=== PATIENT | male | born 1930 | race Caucasian/White ===

== ENCOUNTER 2017-03-24 18:31 | Inpatient (IN) | payer OTHER, MEDICAID ==
[~2017-03-24] VITALS: Ht 177.8 cm; Wt 64.0 kg
--- NOTE | 2017-03-24 18:31 | NUR ---
Patient was BIBA and taken to bed 04 via gurney per EMS.
[2017-03-24 18:40] VITALS: BP 149/70
--- NOTE | 2017-03-24 19:10 | NUR ---
C/O ABDOMINAL PAIN ON SCENE, STAFF AT [facility]ARDING FACILITY STATED TO EMS PT HAS NOT HAD A BM IN FEW DAYS. UPON ARRIVAL PT IS AGGITATED, GENERALIZED TREMORS GRASPING CHEST. WHEN ASKED IF HE HAS PAIN, PT POINTS TO CHEST. HX DEMENTIA, HTN, NON VERBAL,
[2017-03-24] MEDS ORDERED: diphenhydrAMINE 50 MG/ML VIAL IM ONE (19:55)
[2017-03-24] MEDS ORDERED: HALOPERIDOL IM 5 MG/ML VIAL IM ONE (19:55)
[2017-03-24] MEDS ORDERED: VANCOMYCIN 1,000 MG in DEXTROSE 5% 250 ML IV ONE (20:20)
[2017-03-24] MEDS ORDERED: NACL 0.9% 1,000 ML IV ONE ×2 (20:20→22:00)
[2017-03-24] MEDS ORDERED: PIPERACILLIN/TAZOBACTAM 3.375 GM in DEXTROSE 5% 50 ML IV ONE (20:20)
[2017-03-24] MEDS ORDERED: PIPERACILLIN/TAZOBACTAM 3.375 GM VIAL IV ONE (20:50)
[2017-03-24] MEDS ORDERED: VANCOMYCIN 1,000 MG VIAL ONE (21:40)
[2017-03-24] MEDS ORDERED: MORPHINE SULFATE 2 MG/ML SYR IVP PRN (21:50)
[2017-03-24] MEDS ORDERED: ACETAMINOPHEN 325 MG TAB PO PRN (21:50)
[2017-03-24] MEDS ORDERED: DOCUSATE SODIUM 100 MG GELCAP PO PRN (21:50)
[2017-03-24] MEDS ORDERED: ONDANSETRON 4 MG/2 ML VIAL IVP PRN (21:50)
[2017-03-24] MEDS: LACTOBACILLUS RHAMNOSUS GG 1 EACH CAP PO SCH (22:00)
[2017-03-24] MEDS: METOPROLOL 5 MG/5 ML VIAL IVP SCH (22:05)
[2017-03-24] MEDS ORDERED: ALBUTEROL HFA MDI 90 MCG/ACTUATION 8 GM INH PRN (22:05)
--- NOTE | 2017-03-24 22:59 | NUR ---
Patient will be admitted to care of DR CHERRY . Admited to TELE 122B. Will go to room 122B. Belongings list completed. Report to SANDRA CERVANTES .
--- NOTE | 2017-03-24 23:10 | NUR ---
ADMITTED AN 86 Y/O MALE FROM ER, VIA GURNEY ACCOMPANIED BY 3 STAFF. PT AAOX2, APHASIC BUT ABLE TO FOLLOW COMMANDS. PT ON TELE MONITOR. ADMITTING DX OF SEPSIS, METABOLIC ENCEPALOPATHY, UTI. PT IS RESTLESS AND ANXIOUS. ON ROOM AIR. MILD WEAKNESS TO BLE, AMBULATES WITH ASSIST.FALL PRECAUTION AND PLAN OF CARE INITIATED. IV ACCESS TO RT FOREARM, GAUGE 20. NO S/S OF INFILTRATION OBSERVED AT THIS TIME. PROVIDED ORIENTATION TO CALL LIGHT, BATHROOM, TV. YELLOW SOCKS AND BED ALARM IN PLACE. PT REFUSES TO WEAR GOWN, PER ER NURSE, PT KEPT TAKING IT OFF AND MAKES HIM AGITATED. YELLOW ARM BAND AND SIGNAGE. INSTRUCTED TO CALL STAFF FOR ASSISTANCE, PT UNABLE TO VERBALIZE UNDERSTANDING. WILL CONTINUE TO MONITOR.
[2017-03-25] VITALS: BP 148/70
--- NOTE | 2017-03-25 01:41 | NUR ---
PT OBSERVED CONSTANTLY GETTING OUT OF BED, CONSTANTLY REMOVING TELE MONITOR DESPITE CONSTANT REDIRECTION. PAGED DR. CHERRY AND LEFT MESSAGE TO EXCHANGE.AWAITING FOR CALL BACK.
--- NOTE | 2017-03-25 02:00 | NUR ---
PT SLEEPING AT THIS TIME BUT EASILY AROUSABLE. RESP EVEN AND UNLABORED. NO FACIAL GRIMACING OR MOANING INDICATING PAIN. WILL CONTINUE TO MONITOR.
--- NOTE | 2017-03-25 02:42 | NUR ---
PT AWAKE, URINATED ON THE FLOOR, CONFUSED, INTERMITTENTLY GETS OUT OF BED UNASSISTED. REDIRECTED BACK TO BED. SAFETY AND FALL PRECAUTION IN PLACE. PAGED DR. CHERRY, LEFT A MESSAGE TO GISELA. AWAITING FOR CALL BACK.
--- NOTE | 2017-03-25 02:51 | NUR ---
DR. LAZO CALLED BACK, DISCUSSED PATIENT'S BEHAVIOR OF CONSTANTLY REMOVING THE TELE MONITOR. MD ORDERED TO DC DOWN GRADE PT TO MEDSUR. ALSO, MD ORDERED AMBIEN 5MG AT BEDTIME.
[2017-03-25] MEDS: metroNIDAZOLE 500 MG/NS PREMIX 100 ML IV SCH ×3 (04:04→20:36)
--- NOTE | 2017-03-25 04:19 | NUR ---
PT AWAKE AT THIS TIME, RESTLESS AND ANXIOUS MANIFESTED BY CONSTANTLY GETTING OUT OF BED UNASSISTED. NO REGARD FOR HIS OWN SAFETY PLACING HIM AT RISK FOR FALL. FREQUENTLY REORIENTED AND REDIRECTED. PT KEPT CLEAN AND DRY AND COMFORTABLE. PAGED DR. LAZO, MESSAGE LEFT TO GISELA. AWAITING FOR CALL BACK.
--- NOTE | 2017-03-25 04:38 | NUR ---
DR. CHERRY CALLED BACK, MADE AWARE OF PATIENT'S BEHAVIOR WITH ORDER GIVEN ATIVAN 0.5MG IVP Q4H PRN FOR ANXIETY. NOTED AND CARRIED OUT.
[2017-03-25] MEDS ORDERED: PIPERACILLIN/TAZOBACTAM 3.375 GM in DEXTROSE 5% 50 ML IV SCH (05:00)
[2017-03-25] MEDS: LORazepam 2 MG/ML VIAL IVP PRN ×2 (05:09→14:32)
--- NOTE | 2017-03-25 05:09 | NUR ---
ATIVAN 0.5MG IVP ADMINISTERED DUE TO RESTLESSNESS AEB CONSTANTLY TRYING TO GET OUT OF BED WITH NO REGARD FOR SAFETY. WILL CONTINUE TO MONITOR AND REASSESS FOR EFFECTIVENESS.
[2017-03-25] MEDS ORDERED: PIPERACILLIN/TAZOBACTAM 3.375 GM VIAL IV ONE (05:15)
--- NOTE | 2017-03-25 06:32 | NUR ---
PT SOUND ASLEEP AT THIS TIME, EASILY AROUSABLE. NO S/S OF RESPIRATORY DISTRESS. WILL CONTINUE TO MONITOR.
[2017-03-25] MEDS ORDERED: ALBUTEROL 0.083% 2.5 MG/3 ML NEBU INH PRN (07:05)
--- NOTE | 2017-03-25 07:27 | NUR ---
PT SOUND ASLEEP AT THIS TIME. NO S/S OF RESP DISTRESS. NO FACIAL GRIMACING OR MOANING INDICATING PAIN. ALL NEEDS MET. ENDORSED TO NEXT SHIFT FOR CONTINUITY OF CARE. PT IN STABLE CONDITION.
--- NOTE | 2017-03-25 07:30 | NUR ---
RECEIVED PT REPORT AT BEDSIDE FROM NIGHT NURSE. PT IS SLEEPING NOTED IV ON THE R FA WITH IVF RUNNING. PT SHOWS NO S/S OF DISTRESS NOTED ON ROOM AIR. PT SKIN IS INTACT. PT HAS URINAL AT BEDSIDE. PT BED IS LOWERED WITH CALL LIGHT WITHIN REACH.
[2017-03-25 08:00] VITALS: BP 139/64
--- NOTE | 2017-03-25 08:00 | NUR ---
PT IS AOX1. PT IS ON ROOM AIR AND SHOWS NO S/S OF DISTRESS NOTED. PT HAS IVF RUNNING. PT BED IS LOWERED WITH CALL LIGHT WITHIN REACH. PT WAS TAUGHT HOW TO USE CALL LIGHT HOWEVER PT NEEDS REINFORCEMENT. PT DOES NOT COMPREHEND EDUCATION. BED ALARM IS ON. WILL CONTINUE TO MONITOR.
[2017-03-25] MEDS: METOPROLOL 5 MG/5 ML VIAL IVP SCH ×2 (09:00→20:35)
[2017-03-25] MEDS: LACTOBACILLUS RHAMNOSUS GG 1 EACH CAP PO SCH (09:56)
--- NOTE | 2017-03-25 10:15 | NUR ---
PT TATO AND STEP DAUGHTER DEVIKA WERE CALLED TO GET TELEPHONE CONSENT FOR CT W/ WO CONTRAST. JOSE CERVANTES WITNESSED AND VERIFIED CONSENT.
--- NOTE | 2017-03-25 10:25 | NUR ---
PATIENT HAS BEEN SCREENED AND CATEGORIZED HIGH NUTRITION RISK. PATIENT WILL BE SEEN WITHIN 1-2 DAYS OF ADMISSION. 03/25/17-03/26/[address]
--- NOTE | 2017-03-25 10:30 | NUR ---
PT IS WAS FOUND OOB AND URINATED ON THE FLOOR. PT WAS ASSISTED TO BED WITH STEADY GAIT. PT IS BACK IN BED. LINENS AND GOWN WERE CHANGED. PT BED IS LOWERED, FLAT WITH CALL LIGHT WITHIN REACH. BED ALARM IS ON.
--- NOTE | 2017-03-25 11:15 | NUR ---
PT FOUND TRYING TO GET OOB. PT STATES HE WANT TO GET US AND USE BATHROOM. PT WAS GIVEN URINAL. PT URINATED IN BED. CHANGED LINENS AND GOWN.
--- NOTE | 2017-03-25 13:50 | NUR ---
PT WAS FOUND OOB WALKING TO THE BATHROOM. PT URINATED ON THE FLOOR. PT WAS WALKED WITH ASSIST TO THE TOILET. PT THEN WITH ASSIST AMB TO BED WITH STEADY GAIT. PT WAS LAID IN BED. PT LINENS AND GOWN WERE CHANGED. JOSE CERVANTES HELPED AND WITNESSED. EVS WAS CALLED TO CLEAN ROOM. IV IS STILL INTACT AND PATENT. PT SHOWS NO S/S OF DISTRESS ON ROOM AIR. BED IS LOWERED, FLAT WITH CALL LIGHT WITHIN REACH. PT NEEDS REINFORCEMENT. PT DOES NOT COMPREHEND EDUCATION. PT BED ALARM IS ON.
--- NOTE | 2017-03-25 14:15 | NUR ---
03/25/17 RD INITIAL ASSESSMENT COMPLETED PLEASE REFER TO NUTRITION ASSESSMENT UNDER CARE ACTIVITY FOR ESTIMATED NUTRITIONAL NEEDS. 1. CONTINUE REGULAR, MECHANICAL SOFT DIET 2. RD TO FOLLOW-UP 2-3 DAYS; HIGH RISK NATALIA STOLL RD
[2017-03-25] MEDS: PIPER/TAZO 3.375GM/D5W PREMIX 50 ML IV SCH ×2 (14:22→20:26)
--- NOTE | 2017-03-25 14:32 | NUR ---
ADMINISTERED ATIVAN 0.5 MG. PT IS RESTLESS AND ANXIOUS.
--- NOTE | 2017-03-25 15:00 | NUR ---
PT IS IN BED SLEEPING AND SHOWS NO S/S OF DISTRESS ON ROOM AIR.
[2017-03-25 16:00] VITALS: BP 126/58
--- NOTE | 2017-03-25 16:00 | NUR ---
IS IN BED SLEEPING AND SHOWS NO S/S OF DISTRESS. PT BED ALARM IS ON.
--- NOTE | 2017-03-25 17:15 | NUR ---
PT WAS FOUND TRYING TO GET OOB PT URINATED IN BED. PT WAS GIVEN PERINEAL CARE. LINENS AND GOWN WERE CHANGED. PT IS NOW IN BED AND SHOWS NO S/S OF DISTRESS ON ROOM AIR. PT WAS TAUGHT HOW TO USE CALL LIGHT. PT NEEDS REINFORCEMENT BC PT DOES NOT COMPREHEND EDUCATION. PT BED ALARM IS ON.
--- NOTE | 2017-03-25 17:55 | NUR ---
PT LEFT IN STABLE CONDITION TO CT SCAN.
--- NOTE | 2017-03-25 18:20 | NUR ---
PT BACK ON UNIT. PT IS AOX1 PT SHOWS NO S/S OF DISTRESS NOTED AT THIS TIME.
--- NOTE | 2017-03-25 18:35 | NUR ---
PT WAS FOUND OOB URINATED AT THE BEDSIDE. PT GOWNS AND LINENS WERE CHANGED. PT IS CONFUSED AND UNAWARE OF WERE HE IS AT. PT ONLY STATES HIS NAME. PT IS BACK IN BED AND SHOWS NO S/S OF DISTRESS ON ROOM AIR. PT BED IS LOWERED WITH CALL LIGHT WITHIN REACH. PT WAS REEDUCATED ABOUT BED ALARM. PT NEEDS REENFORCEMENT ON USING CALL LIGHT HOWEVER PT DOES NOT COMPREHEND EDUCATION. BED ALARM IS ON. WILL CONTINUE TO MONITOR.
--- NOTE | 2017-03-25 18:37 | NUR ---
ADMINISTERED SCHEDULED MEDICATION LATE. I WAS UNABLE TO ADMINISTER MEDICATION ON TIME. PT IS IN BED AND SHOWS NO S/S OF DISTRESS AT THIS TIME.
--- NOTE | 2017-03-25 19:20 | NUR ---
GAVE PT REPORT TO NIGHT NURSE. PT ENDORSED IN STABLE CONDITION.
--- NOTE | 2017-03-25 19:23 | NUR ---
RECEIVED FROM AM RN IN BED SLEEPING. NO RESTLESSNESS NOTED. PT. PER AM RN CONFUSED. NO SOB. DX. METABOLIC ENCEPHALOPATHY. BED ALARM ON. NEEDS WILL BE ANTICIPATED AND WILL BE MET. TOTAL CARE.
[2017-03-25] MEDS: ZOLPIDEM 5 MG TAB PO SCH (20:27)
[2017-03-25 20:31] VITALS: BP 115/58
--- NOTE | 2017-03-25 20:36 | NUR ---
FLAGYL 500 MG. WILL NOT BE ADMINISTERED RT PT. JUST GOT HIS FLAGYL IVP DOSE AT 1830. PT. BEEN SO RESTLESS FOR THE AM SHIFT. RN UNABLE TO GIVE ON TIME. PT. KEPT PULLING HIS IV TUBING.
[2017-03-25] MEDS ORDERED: NITROGLYCERIN 0.4 MG TAB SL PRN (20:55)
[2017-03-25] MEDS: ATORVASTATIN 20 MG TAB PO SCH (21:29)
[2017-03-25] MEDS: OXYBUTYNIN 5 MG TAB PO SCH (21:29)
[2017-03-25] MEDS: VALSARTAN 80 MG TAB PO SCH (21:29)
[2017-03-25] MEDS: QUEtiapine FUMARATE 25 MG TAB PO SCH (21:30)
[2017-03-25] MEDS ORDERED: QUEtiapine FUMARATE 25 MG TAB ONE (21:33)
--- NOTE | 2017-03-25 22:49 | NUR ---
NEW IVF LINE INSERTED FOR PT. RT PT. PULLED OUT PREVIOUS IVF TUBING. NEW IVF INSERTED TO RAC#24 . GOOD BLOOD RETURN . TOLERATED WELL. US ABDOMEN DONE AND EKG DONE. PT. KEPT WARM AND COMFORTABLE. TRYING TO GO BACK TO SLEEP. NEEDS ANTICIPATED. PT. ENCOURAGED TO USE URINAL.
--- NOTE | 2017-03-25 23:44 | NUR ---
PT. WOKE UP AND STOOD UP FROM BED . CONFUSED. URINATED ON THE FLOOR. RE-ORIENTED TO ENVIRONMENT AND CARE GIVERS. ENCOURAGED TO GO BACK IN BED. BEDDINGS AND GOWN CHANGED. KEPT DRY AND WARM. BED ALARM ON.
--- NOTE | 2017-03-26 00:13 | NUR ---
PT. SLEPT BACK. WILL MONITOR MORE CLOSELY. BED ALARM ON. PT. CONFUSED. NEW IVF LINE INSERTED TO RAC #24.
--- NOTE | 2017-03-26 02:00 | NUR ---
AWAKE AND STOOD UP TO URINATE IN BRP. ENCOURAGED TO URINATE IN URINAL RT WEAK AND NOT STEADY WITH AMBULATION. ABLE TO URINATE 200 ML IN URINAL. CHANGED GOWN AND BEDDING RT WET WITH URINE. DX. OF UTI. AFEBRILE.
--- NOTE | 2017-03-26 04:28 | NUR ---
SLEEPING AT THIS TIME.
[2017-03-26] MEDS: LORazepam 2 MG/ML VIAL IVP PRN ×3 (04:58→16:59)
--- NOTE | 2017-03-26 05:00 | NUR ---
PT. RESTLESS AND WANTING TO WALK AROUND . PT. CONFUSED AND WEAK IN AMBULATING. FALL RISK. CHARGE NURSE MEDICATED PT. WITH ATIVAN IVP. NEW IVF SITE PATENT AND INTACT. COVERED WITH KERLIX RT PT. TENDENCY OF PULLING IVF TUBING.
[2017-03-26] MEDS: PIPER/TAZO 3.375GM/D5W PREMIX 50 ML IV SCH (05:31)
[2017-03-26] MEDS: metroNIDAZOLE 500 MG/NS PREMIX 100 ML IV SCH (05:31)
--- NOTE | 2017-03-26 06:04 | NUR ---
PT. POST ATIVAN IVP VITAL SIGNS WNL. 130/66 HR 66 AND 02 SAT AT 96 %. OPENS EYES WHEN AWAKENED.
--- NOTE | 2017-03-26 07:37 | NUR ---
ENDORSED TO THE NEXT RN FOR CONTINUITY OF CARE. SLEEPING AT THIS TIME. WAKES UP WHEN TOUCHED. OPENED EYSE WHEN WE TRIED TO WAKE HIM UP FOR MENTATION LEVEL CHECK. BP AT THIS TIME 140/69. PULSE 60 AND 02 SAT AT 98% ROOM AIR.
--- NOTE | 2017-03-26 07:38 | NUR ---
PT AWAKE AND RESPONSIVE, WITH PERIODS OF CONFUSION. BREATHING EVENLY AND UNLABORED, NO SIGNS OF ACUTE DISTRESS. SKIN IS WARM AND DRY. OFFLOAD TO PRESSURE AREAS. NO SIGNS OF ANY BOWEL/BLADDER DISCOMFORT. NO SIGNS OF ANY PAIN OR DISCOMFORT AT THIS TIME, ALL NEEDS ATTENDED, SAFETY PRECAUTIONS MAINTAINED. CALL LIGHT WITHIN REACH.
[2017-03-26 08:00] VITALS: BP 126/64
[2017-03-26] MEDS: QUEtiapine FUMARATE 25 MG TAB PO SCH ×3 (08:41→16:46)
[2017-03-26] MEDS: OXYBUTYNIN 5 MG TAB PO SCH ×2 (08:41→21:06)
[2017-03-26] MEDS: amLODIPine 5 MG TAB PO SCH (08:41)
[2017-03-26] MEDS: MEMANTINE 10 MG TAB PO SCH (08:41)
[2017-03-26] MEDS: LACTOBACILLUS RHAMNOSUS GG 1 EACH CAP PO SCH (08:41)
[2017-03-26] MEDS: VALSARTAN 80 MG TAB PO SCH ×2 (08:41→21:06)
[2017-03-26] MEDS: ASPIRIN 81 MG TAB.CHEW PO SCH (08:41)
[2017-03-26] MEDS: METOPROLOL 5 MG/5 ML VIAL IVP SCH ×2 (08:52→21:13)
--- NOTE | 2017-03-26 10:49 | NUR ---
NEW ORDERS RECEIVED FROM DR YUSUF. NOTED AND CARRIED OUT.
--- NOTE | 2017-03-26 13:36 | NUR ---
PT NOTES CHART REVIEWED AND NOT CLEARED FOR PT BY RN D/T BEING RESTLESS AT THIS TIME, RN ASKED IF POSSIBLE TO RETURN TOMORROW TO ATTEMPT THERAPY. WILL FOLLOW UP PATIENT TOMORROW. ASSISTED RN TO POSITION PATIENT TOWARDS HOB. PVEx1 Addendum: 03/26/17 at 1520 by Marleen Jane PT PHYSICAL THERAPY CO-SIGN The Physical Therapy Progress Notes documented by Lawn Mower have been reviewed. WILL FOLLOW UP W/Pt TOMORROW TO CONT W/POC Reviewed/Co-Signed by: Marleen Jane PT Documentation Done by: EMANI INGRAM PTA
[2017-03-26 16:00] VITALS: BP 129/51
--- NOTE | 2017-03-26 18:21 | NUR ---
PT AWAKE AND RESPONSIVE, RESTING WELL IN BED. WILL ENDORSE TO ONCOMING TOOL POLISHER NURSE FOR CONTINUITY OF CARE.
--- NOTE | 2017-03-26 19:30 | NUR ---
RECEIVED REPORT FROM NASH RN. PATIENT IS AWAKE, MUMBLES INCOHERENTLY, AND RESTING IN BED. PATIENT HAS HX OF DEMENTIA. REINFORCEMENT IS NEEDED. VITAL SIGNS ARE STABLE WITH NO SIGNS OF RESPIRATORY DISTRESS NOTED. NO REPORTS OF PAIN OR DISCOMFORT. THERE IS A #22 IN THE LEFT FOREARM TKO. EXPLAINED PLAN OF CARE TO INCLUDE VITAL SIGNS, MONITORING, AND MEDICATION ADMINISTRATION. UNABLE TO ASSESS IF PATIENT COMPREHENDED PATIENT TEACHING. REINFORCEMENT IS NEEDED. SAFETY MEASURES ENFORCED, WITH CALL LIGHT WITHIN PATIENT'S REACH. WILL CONTINUE TO MONITOR PATIENT.
[2017-03-26] MEDS: ZOLPIDEM 5 MG TAB PO SCH (21:05)
[2017-03-26] MEDS: ATORVASTATIN 20 MG TAB PO SCH (21:06)
--- NOTE | 2017-03-26 21:15 | NUR ---
TOLERATED DUE MEDICATIONS WITH NO SIGNS OF SOB OR DISCOMFORT NOTED. SAFETY MEASURES ENFORCED WITH CALL LIGHT WITHIN REACH. CONTINUE TO MONITOR PATIENT.
--- NOTE | 2017-03-26 22:15 | NUR ---
PATIENT RESTING COMFORTABLY IN BED WITH NO SIGNS OF RESPIRATORY DISTRESS OR SOB NOTED. SAFETY MEASURES ENFORCED, WITH CALL LIGHT WITHIN REACH. WILL CONTINUE TO MONITOR PATIENT.
[2017-03-27] VITALS: BP 144/74
--- NOTE | 2017-03-27 | NUR ---
PATIENT IS RESTING COMFORTABLY IN BED WITH NO S/S OF RESPIRATORY DISTRESS OR DISCOMFORT NOTED. VITALS ARE WNL. SAFETY MEASURES ENFORCED, WITH CALL LIGHT WITHIN REACH. WILL CONTINUE TO MONITOR PATIENT.
--- NOTE | 2017-03-27 02:00 | NUR ---
PATIENT RESTING COMFORTABLY IN BED WITH NO SIGNS OF ACUTE DISTRESS OR SOB NOTED. SAFETY MEASURES ENFORCED, WITH CALL LIGHT WITHIN REACH. CONTINUE TO MONITOR PATIENT.
[2017-03-27] MEDS: LORazepam 2 MG/ML VIAL IVP PRN (02:35)
--- NOTE | 2017-03-27 02:35 | NUR ---
PATIENT AGITATED AND ATTEMPTING TO GET OUT OF BED. ADMINISTERED ATIVAN 0.5MG IVP PER DOCTOR'S ORDERS. CONTINUE TO MONITOR.
--- NOTE | 2017-03-27 02:45 | NUR ---
PATIENT VOIDED MODERATE AMOUNT OF CLEAR YELLOW URINE ON PERIPAD. PERINEAL CARE PROVIDED. REPOSITIONED PATIENT FOR COMFORT. NO SIGNS OF RESPIRATORY DISTRESS NOTED. SAFETY MEASURES ENFORCED, WITH CALL LIGHT WITHIN REACH. CONTINUE TO MONITOR PATIENT.
--- NOTE | 2017-03-27 04:15 | NUR ---
ROUNDED ON PATIENT. PATIENT IN STABLE CONDITION RESTING IN BED. BREATHING IS EVEN AND UNLABORED. SAFETY MEASURES ENFORCED, WITH CALL LIGHT WITHIN REACH. WILL CONTINUE TO MONITOR PATIENT.
--- NOTE | 2017-03-27 07:10 | NUR ---
RECEIVED PATIENT REPORT AT BEDSIDE. PATIENT ASLEEP BUT AROUSABLE. NO S/S OF DISTRESS NOTED. PATIENT ON ROOM AIR. IV LINE NOTED TO THE LEFT FOREARM WITH IVF RUNNING TKO. FALL PRECAUTIONS IN PLACE. BED LOWERED WITH CALL LIGHT WITHIN REACH. WILL CONTINUE TO MONITOR
--- NOTE | 2017-03-27 07:19 | NUR ---
PATIENT IN STABLE CONDITION. ENDORSED CONTINUITY OF CARE TO MIKE CERVANTES.
[2017-03-27 07:36] VITALS: BP 149/72
[2017-03-27] MEDS: amLODIPine 5 MG TAB PO SCH (09:43)
[2017-03-27] MEDS: OXYBUTYNIN 5 MG TAB PO SCH ×2 (09:43→21:14)
[2017-03-27] MEDS: VALSARTAN 80 MG TAB PO SCH ×2 (09:43→21:00)
[2017-03-27] MEDS: QUEtiapine FUMARATE 25 MG TAB PO SCH ×3 (09:43→17:17)
[2017-03-27] MEDS: MEMANTINE 10 MG TAB PO SCH (09:43)
[2017-03-27] MEDS: ASPIRIN 81 MG TAB.CHEW PO SCH (09:43)
[2017-03-27] MEDS: LACTOBACILLUS RHAMNOSUS GG 1 EACH CAP PO SCH (09:43)
[2017-03-27] MEDS: METOPROLOL 5 MG/5 ML VIAL IVP SCH ×2 (09:51→21:00)
--- NOTE | 2017-03-27 13:20 | NUR ---
NURSE ASSISTED PT WITH LUNCH. PT SAT UP IN BED AND TOLERATED LUNCH WELL.
--- NOTE | 2017-03-27 13:20 | NUR ---
PATIENT SEEN BY PHYSICAL THERAPIST. PATIENT ABLE TO AMBULATE WITH WALKER
--- NOTE | 2017-03-27 14:40 | NUR ---
FAXED INQUIRY FOR SNF TO [facility] [place] [phone] PHONE [phone]
[2017-03-27 16:00] VITALS: BP 128/64
--- NOTE | 2017-03-27 16:11 | NUR ---
PHYSICAL THERAPY CO-SIGN The Physical Therapy Progress Notes documented by Collection Teller have been reviewed. Reviewed/Co-Signed by: Karla Kendall PT Documentation Done by:EMANI INGRAM PTA PROGRESS FILIPE. Addendum: 03/27/17 at 1612 by Karla Kendall PT Amended: Links added.
--- NOTE | 2017-03-27 18:00 | NUR ---
HELPED PT EAT DINNER. PT TOLERATED WELL. WILL CONTINUE TO MONITOR.
--- NOTE | 2017-03-27 19:00 | NUR ---
RECEIVED PT FROM DAYSHIFT NURSE, PT ALERT IN PERSON IV ON LEFT ARM INFUSING WELL , REPOSITIONED INITIAL ASSESSMENT DONE
--- NOTE | 2017-03-27 19:08 | NUR ---
ENDORSED CARE OF PT TO MACHINE I TRIMMER NURSE AT BEDSIDE. PT IN STABLE CONDITION.
[2017-03-27 20:00] VITALS: BP 93/50
[2017-03-27] MEDS: ZOLPIDEM 5 MG TAB PO SCH (21:14)
[2017-03-27] MEDS: ATORVASTATIN 20 MG TAB PO SCH (21:15)
--- NOTE | 2017-03-27 22:00 | NUR ---
PT REPOSITIONED Q2H LINEN CHANGED PT INCONTINENT NOT DISTRESS NOTED AT THIS TIME
--- NOTE | 2017-03-28 | NUR ---
PT SLEEPING, REPOSLITIONED Q2H LINEN CHANGED
--- NOTE | 2017-03-28 04:00 | NUR ---
SPONGE BATH GIVEN LINEN CHANGED PT INCONTINENT NOT DISTRESS NOTED
--- NOTE | 2017-03-28 06:42 | NUR ---
PT SLEEPING, HE WILL BE ENDORSED TO DAY SHIFT NURSE FOR CONTINUITY OF CARE
--- NOTE | 2017-03-28 07:29 | NUR ---
RECEIVED PT IN BED. ASLEEP. AROUSABLE TO VOICE. ALERT ORIENTED X1. NO SOB NOTED. DENIES ANY PAIN OR DISCOMFORT AT THIS TIME. NO SIGNS AND SYMPTOMS OF ACUTE PAIN OR DISTRESS NOTED. PT AMBULATORY WITH ASSIST. SAFETY PRECAUTION IN PLACE. CALL LIGHT WITHIN REACH.
--- NOTE | 2017-03-28 07:36 | NUR ---
PT ENDORSED TO NEXT SHIFT FOR CONTINUITY OF CARE ON STABLE CONDITION Addendum: 03/28/17 at 2020 by Donna Graves RN DISREGARD ABOVE DOCUMENTATION. WRONG TIME.
[2017-03-28 08:00] VITALS: BP 112/59
[2017-03-28] MEDS: VALSARTAN 80 MG TAB PO SCH ×2 (09:00→21:38)
[2017-03-28] MEDS: METOPROLOL 5 MG/5 ML VIAL IVP SCH ×2 (09:00→21:37)
[2017-03-28] MEDS: amLODIPine 5 MG TAB PO SCH (09:00)
--- NOTE | 2017-03-28 10:00 | NUR ---
ASSISTED PT EATING HIS BREAKFAST. TOLERATED WELL.
[2017-03-28] MEDS: MEMANTINE 10 MG TAB PO SCH (10:02)
[2017-03-28] MEDS: LACTOBACILLUS RHAMNOSUS GG 1 EACH CAP PO SCH (10:02)
[2017-03-28] MEDS: ASPIRIN 81 MG TAB.CHEW PO SCH (10:02)
[2017-03-28] MEDS: QUEtiapine FUMARATE 25 MG TAB PO SCH ×3 (10:03→17:12)
[2017-03-28] MEDS: OXYBUTYNIN 5 MG TAB PO SCH ×2 (10:03→21:38)
--- NOTE | 2017-03-28 11:15 | NUR ---
03/28/17 RD FOLLOW UP COMPLETED. PLEASE REFER TO NUTRITION PROGRESS NOTE UNDER CARE ACTIVITY FOR ESTIMATED NUTRITION NEEDS. RD RECOMMENDATIONS: 1- RECOMMEND CONTINUE CURRENT DIET, MECHANICAL SOFT - SUFFICIENT TO MEET >75% OF DAILY ESTIMATED NUTRITIONAL NEEDS WITH ACCEPTABLE TOLERANCE. 2- F/U DUE IN 3-5 DAYS; MODERATE RISK. ARNOL TORRES MBA, RD
[2017-03-28 13:01] VITALS: BP 115/67
[2017-03-28 16:00] VITALS: BP 114/64
--- NOTE | 2017-03-28 19:30 | NUR ---
REPORT GIVEN TO NEXT SHIFT FOR CONTINUITY OF CARE. PT ON STABLE CONDITION.
--- NOTE | 2017-03-28 20:00 | NUR ---
RECEIVED AWAKE,ALERT,CONFUSED. TRIES TO GET OUT OF BED WITHOUT HELP. BED ALARM ON. AFEBRILE, NOT IN ACUTE DISTRESS. NO PAIN OR DISCOMFORT NOTED. WITH SALINE LOCK TO THE LEFT FOREARM INTACT. VS STABLE, WILL CONTINUE TO MONITOR. NEEDS ATTENDED.
[2017-03-28] MEDS: ZOLPIDEM 5 MG TAB PO SCH (21:00)
[2017-03-28 21:30] VITALS: BP 111/65
[2017-03-28] MEDS: ATORVASTATIN 20 MG TAB PO SCH (21:38)
[2017-03-28] MEDS: LORazepam 2 MG/ML VIAL IVP PRN (21:39)
--- NOTE | 2017-03-28 21:39 | NUR ---
AMBIEN NOT GIVEN DUE TO RESTLESSNESS AND CONFUSION. ATIVAN 0.5 MG IVP GIVEN INSTEAD. OTHER DUE MEDS ALSO GIVEN.
--- NOTE | 2017-03-28 22:30 | NUR ---
PT.ASLEEP, NOT IN ANY KIND OF DISTRESS. WILL CLOSELY MONITOR.
[2017-03-29] VITALS: BP 147/65
--- NOTE | 2017-03-29 | NUR ---
AWAKE,CALM,NOT IN ANY KIND OF DISTRESS. NO PAIN OR DISCOMFORT NOTED. SIDE RAILS UP,CALL LIGHT WITHIN REACH. KEPT WARM AND COMFORTABLE. VS REMAIN STABLE.
--- NOTE | 2017-03-29 04:00 | NUR ---
ASLEEP, NO PAIN OR DISCOMFORT. KEPT WARM AND COMFORTABLE. WILL CONTINUE TO MONITOR.
--- NOTE | 2017-03-29 06:40 | NUR ---
BOILER ATTENDANT UNABLE TO DRAW BLOOD. THEY WILL SEND SOMEBODY TO DRAW LATER.
--- NOTE | 2017-03-29 07:00 | NUR ---
ENDORSED CARE TO NASH RN.
[2017-03-29 07:57] VITALS: BP 121/53
[2017-03-29] MEDS: METOPROLOL 5 MG/5 ML VIAL IVP SCH ×2 (08:27→21:44)
[2017-03-29] MEDS: amLODIPine 5 MG TAB PO SCH (08:41)
[2017-03-29] MEDS: QUEtiapine FUMARATE 25 MG TAB PO SCH ×3 (08:42→16:40)
[2017-03-29] MEDS: OXYBUTYNIN 5 MG TAB PO SCH ×2 (08:42→21:43)
[2017-03-29] MEDS: LACTOBACILLUS RHAMNOSUS GG 1 EACH CAP PO SCH (08:42)
[2017-03-29] MEDS: ASPIRIN 81 MG TAB.CHEW PO SCH (08:42)
[2017-03-29] MEDS: MEMANTINE 10 MG TAB PO SCH (08:42)
[2017-03-29] MEDS: VALSARTAN 80 MG TAB PO SCH ×2 (08:42→21:42)
[2017-03-29 16:00] VITALS: BP 128/65
--- NOTE | 2017-03-29 18:05 | NUR ---
RECEIVED NEW LAB ORDERS FROM DR. SMITH, NOTED AND CARRIED OUT.
[2017-03-29] MEDS: LORazepam 2 MG/ML VIAL IVP PRN (18:22)
--- NOTE | 2017-03-29 19:04 | NUR ---
PT AWAKE AND RESPONSIVE, NO SIGNS OF ACUTE DISTRESS. ENDORSED TO ONCOMING AUDIO NARRATOR NURSE FOR CONTINUITY OF CARE.
--- NOTE | 2017-03-29 19:12 | NUR ---
RECEIVED REPORT, ASSUMED CARE. PT SLEEPING AT THIS TIME WITH REGULAR BREATHING PATTERN. NO S/S OF RESPIRATORY DISTRESS. NO FACIAL GRIMACING INDICATING PAIN. IV ACCESS TO LT FA INTACT AND PATENT, GAUGE 22. NO S/S OF INFILTRATION AT THIS TIME. ALL NEEDS ANTICIPATED. FALL PRECAUTION IN PLACE. BED ALARM ON. WILL CONTINUE TO MONITOR.
[2017-03-29 20:00] VITALS: BP 116/58
[2017-03-29] MEDS: ZOLPIDEM 5 MG TAB PO SCH (21:43)
[2017-03-29] MEDS: ATORVASTATIN 20 MG TAB PO SCH (21:43)
--- NOTE | 2017-03-29 21:44 | NUR ---
PT STILL SLEEPING AT THIS TIME, AROUSABLE BUT DROWSY. ALL SCHEDULED MEDS HELD AT THIS TIME. WILL TRY TO ADMINISTER WHEN PT IS FULLY AWAKE. NO ACUTE CHANGES NOTED AT THIS TIME. WILL CONTINUE TO MONITOR.
--- NOTE | 2017-03-29 22:51 | NUR ---
REASSESSED BP, 102/45 P 81. PT REMAINS ASLEEP AT THIS TIME. NO ACUTE CHANGES NOTED. NO S/S OF RESPIRATORY DISTRESS. WILL CONTINUE TO MONITOR.
[2017-03-30] VITALS: BP 98/50
--- NOTE | 2017-03-30 00:36 | NUR ---
PT SOUND ASLEEP, EASY TO AROUSE. RESPIRATION EVEN AND UNLABORED, NO S/S RESP DISTRESS AT THIS TIME. WILL CONTINUE TO MONITOR.
--- NOTE | 2017-03-30 07:22 | NUR ---
PT HAS SLEPT THROUGH THE NIGHT. ASSISTED TO USE THE URINAL FOR BLADDER FUNCTION. NO S/S RESPIRATORY DISTRESS. ENDORSED TO NEXT SHIFT FOR CONTINUITY OF CARE. PT IN STABLE CONDITION.
--- NOTE | 2017-03-30 07:23 | NUR ---
RECEIVED REPORT AT BEDSIDE FROM LOAD BUILDER NURSE. PT IS SLEEPING. UPDATED THE BOARD. PT HAS IV ON L F/A 22 G SL. PT APPEARS TO BE IN NO DISTRESS. VS WNL. CALL LIGHT WITHIN REACH. WILL CONTINUE TO MONITOR.
[2017-03-30 08:00] VITALS: BP 111/63
[2017-03-30] MEDS ORDERED: ALBUTEROL SULFATE/IPRATROPIU 3 ML SOL IH PRN (08:35)
[2017-03-30] MEDS ORDERED: guaiFENesin DM SUGAR FREE 100 MG/5 ML UDBTL PO PRN (08:35)
[2017-03-30 09:00] VITALS: BP 111/63
[2017-03-30] MEDS: METOPROLOL 5 MG/5 ML VIAL IVP SCH (09:00)
--- NOTE | 2017-03-30 09:00 | NUR ---
PT TOLERATED MORNING MEDS WELL. CALL LIGHT WITHIN REACH. WILL CONTINUE TO MONITOR.
[2017-03-30] MEDS: QUEtiapine FUMARATE 25 MG TAB PO SCH (09:13)
[2017-03-30] MEDS: MEMANTINE 10 MG TAB PO SCH (09:14)
[2017-03-30] MEDS: OXYBUTYNIN 5 MG TAB PO SCH (09:14)
[2017-03-30] MEDS: amLODIPine 5 MG TAB PO SCH (09:15)
[2017-03-30] MEDS: VALSARTAN 80 MG TAB PO SCH (09:15)
[2017-03-30] MEDS: ASPIRIN 81 MG TAB.CHEW PO SCH (09:15)
[2017-03-30] MEDS: LACTOBACILLUS RHAMNOSUS GG 1 EACH CAP PO SCH (09:15)
--- NOTE | 2017-03-30 09:30 | NUR ---
TOLERATED INCENTIVE PROCEDURE WELL WITHOUT INCIDENT ENCOURAGED PATIENT TO USE EVERY 2 HOURS WHILE AWAKE
[2017-03-30] MEDS ORDERED: DIOVAN80 M1 PO (10:03)
[2017-03-30] MEDS ORDERED: ATORVASTATIN CA20 MG PO (10:03)
[2017-03-30] MEDS ORDERED: COLACE100 M1 PO (10:03)
[2017-03-30] MEDS ORDERED: AMBIEN5 M1 PO (10:03)
[2017-03-30] MEDS ORDERED: ASPIRIN ADULT L81 M1 PO (10:03)
[2017-03-30] MEDS ORDERED: DITROPAN5 M1 PO (10:03)
[2017-03-30] MEDS ORDERED: NAMENDA10 MG PO (10:03)
[2017-03-30] MEDS ORDERED: NITROSTAT0.4 MG SL (10:03)
[2017-03-30] MEDS ORDERED: ACETAMINOPHEN325 M2 PO (10:03)
[2017-03-30] MEDS ORDERED: NOVAPLUS ONDA2 MG/M1 PO (10:03)
[2017-03-30] MEDS ORDERED: QUETIAPINE FUMA25 M1 PO (10:03)
[2017-03-30] MEDS ORDERED: CULTURELLE10 Billion PO (10:03)
[2017-03-30] MEDS ORDERED: AMLODIPINE BESYL5 M1 PO (10:22)
--- NOTE | 2017-03-30 10:30 | NUR ---
PT VOIDED IN URINAL IN BED. TOLERATED WELL.
--- NOTE | 2017-03-30 12:25 | NUR ---
SPOKE TO HELEN JIMENES AT [facility] TO GIVE REPORT.
--- NOTE | 2017-03-30 12:41 | NUR ---
SPOKE WITH EMELY AT [facility]. THE PATIENT CA GO TO ROOM 47B UNDER DR. HORTA . DAVE CERVANTES AWARE.
--- NOTE | 2017-03-30 12:50 | NUR ---
NOTIFIED OF PT THAT PT IS GOING TO [facility]. AWARE.
--- NOTE | 2017-03-30 13:00 | NUR ---
TRANSPORTERS CAME TO [facility] MACHINE SET UP MECHANIC PT TO GO TO [facility]. REPORT GIVEN TO TRANSPORTERS. BANDS REMOVED. IV REMOVED, CANNULA INTACT. PT IN TRANSPORT GOWN AND BLANKET. PT IN STABLE CONDITION.
== END 2017-03-30 13:00 | DRG 56 ==
LOC: MED 18:31 → MTU 21:50
PROVIDERS: ADMIT Family Medicine; ATTEND Family Medicine
DX: G30.9 Alzheimer's disease, unspecified (principal); G93.41 Metabolic encephalopathy; I50.43 Acute on chronic combined systolic (congestive) and diastolic (congestive) heart failure; N17.0 Acute kidney failure with tubular necrosis; E44.0 Moderate protein-calorie malnutrition; I42.9 Cardiomyopathy, unspecified; F03.90 Unspecified dementia, unspecified severity, without behavioral disturbance, psychotic disturbance, mood disturbance, and anxiety; I48.91 Unspecified atrial fibrillation; R32 Unspecified urinary incontinence; K21.9 Gastro-esophageal reflux disease without esophagitis; E78.5 Hyperlipidemia, unspecified; E87.8 Other disorders of electrolyte and fluid balance, not elsewhere classified; R91.1 Solitary pulmonary nodule; I10 Essential (primary) hypertension; D72.829 Elevated white blood cell count, unspecified; I49.1 Atrial premature depolarization; I11.0 Hypertensive heart disease with heart failure; K59.00 Constipation, unspecified; Z68.20 Body mass index [BMI] 20.0-20.9, adult